=== PATIENT | male | born 1990 | race Caucasian/White ===

== ENCOUNTER 2019-06-18 19:37 | Emergency (ER) | payer MEDICAID ==
[~2019-06-18] VITALS: Ht 185.4 cm; Wt 131.1 kg
--- NOTE | 2019-06-18 20:33 | NUR ---
pt awaiting er md. stable vs. pain is 3 out of 10 to right eye. visiton intact
[2019-06-18 20:34] VITALS: BP 174/95
[2019-06-18] MEDS ORDERED: proparacaine 0.5% ophthalmic drops 15ml EACHEYE ONE (20:55)
--- NOTE | 2019-06-18 21:11 | NUR ---
provider at bedside
[2019-06-18] MEDS ORDERED: CIPR2.5D18 RIGHTEYE (21:23)
[2019-06-18] MEDS ORDERED: ciprofloxacin 0.3% 2.5ml ophthalmic solution RIGHTEYE SCH (21:30)
[2019-06-19] MEDS ORDERED: ciprofloxacin 0.3% 2.5ml ophthalmic solution RIGHTEYE SCH
== END 2019-06-18 21:42 | disposition home or self-care (01) ==
LOC: ER 19:38
DX: S05.01XA Injury of conjunctiva and corneal abrasion without foreign body, right eye, initial encounter (principal); X58.XXXA Exposure to other specified factors, initial encounter; Y93.89 Activity, other specified; Y92.89 Other specified places as the place of occurrence of the external cause; Y99.9 Unspecified external cause status
CPT/HCPCS: 99283

== ENCOUNTER 2021-02-03 20:02 | Emergency (ER) | payer MEDICAID ==
[~2021-02-03] VITALS: Ht 182.9 cm; Wt 136.4 kg
[2021-02-03 20:10] VITALS: BP 162/99
== END 2021-02-03 23:55 | disposition left against medical advice (07) ==
LOC: ER 20:03
DX: R10.9 Unspecified abdominal pain (principal); Z53.21 Procedure and treatment not carried out due to patient leaving prior to being seen by health care provider
CPT/HCPCS: 93005